=== PATIENT | male | born 1980 | race Caucasian/White ===

== ENCOUNTER 2019-02-12 07:08 | Emergency (ER) | payer OTHER, SELFPAY ==
[2019-02-12 07:13] VITALS: BP 160/106; PULSE 113; RESP 16; TEMP 36.6; O2SAT 95
--- NOTE | 2019-02-12 07:17 | ED.GENADUL_ITS ---
Discharge Plan Disposition Patient Disposition: HOME Condition: Good Discharge Details Chief Complaint: Orthopedic Clinical Impression: Acute pain of right knee Primary Care Provider: Tyler Pedraza ED Provider: Heidi Mckeon Home Meds and New Rx's Prescriptions: No Action omeprazole 20 MG capsule,delayed release(DR/EC) 20 mg PO DAILY Qty: 90 RF: 3 ibuprofen 800 MG tablet 800 mg PO BID PRNQty: 60 RF: 1 albuterol sulfate [Proventil HFA] 200 PUFF HFA aerosol inhaler 2 puff Inhalation Q4H PRN PRNQty: 1 RF: 0 (DME) inhalational spacing device [AeroChamber Plus Z Stat Sm Msk] 1 EACH spacer 1 ea Miscellaneous Q4H PRN Qty: 1 RF: 0 Discharge Instructions Instructions: Knee Pain (ED) Additional Instructions: At this time there is no evidence of significant fracture noted on the x-ray. Please use a tight Shmuel wrap for your knee to give it stability, or use knee brace if it is able to fit comfortably. Please use Tylenol and Motrin to help decrease any swelling, and use your crutches at all times until the pain resolves. Please follow-up closely with Dr. Jones. If you notice any worsening of your symptoms, or any new symptoms such as redness around her knee, worsening swelling, worsening pain,, numbness, weakness, or fainting , please return immediately to the emergency department for reevaluation. As always, it was a pleasure participating in your medical care today. Stand Alone Forms: Work Release Referrals: Vick Jones MD [ [facility] STAFF PHYSICIAN] - Discharge Data Discharge Physician: Heidi Mckeon Medical Decision Making <Janusz Clark DO - Last Filed: 02/12/19 07:30> This is a pleasant 38-year-old male past medical history of previous patellar dislocation who presents today for evaluation of right knee pain. Patient states that roughly an hour or so ago he felt like his knee was not able to fully extend, felt notably unstable in the extended position. He denies any significant pain except when in the completely extended position and at that time it is mild. He denies numbness tingling weakness fall or trauma recently. He does have a history of previous patella dislocation, and states that although he has no pain right now, it feels notably unstable like it is about to dislocate when he is extended. Exam is notably unremarkable. It is slightly ch allenging secondary to the body habitus of the patient's leg. No gross osseous deformities, no signs of significant joint instability. We will get an x-ray to rule out acute fracture or atypical calcified lesion, will give crutches, and reassess. He has seen Dr. Jones before I feel that orthopedic follow-up would be beneficial. Case will be signed out to my colleague Dr. Heidi Mckeon for final disposition after imaging. <Heidi Mckeon DO - Last Filed: 02/12/19 10:12> 0800 --please see Dr. Clark's note for initial presentation, exam and plan. 38-year-old male with a previous history of patellar dislocation presents with right knee pain with full extension since this morning. He denies any recent injury. He has no pain at rest or when sitting, only with full extension. Right knee appears minimally edematous anterior superior knee with no erythema or significant increase in temperature to touch compared to left knee. He has pain with varus stress but no other ligamentous instability, deformity or evidence of trauma. He is neurovascularly intact. Case endorsed to follow-up on x-ray. There was concern that patient possibly had a high riding patella so were waiting on virtual radiology report. 0934 --Long delay in vrad report due to high turn around times. X-ray read as negative. Patient advised on the importance of RICE, motrin, tylenol. An Shmuel wrap was placed here. He states he has a hinged knee brace and he brought crutches here. He was advised to follow-up with Dr. Jones for reevaluation as he has seen him in the past for his knee pain. Usual and customary return precautions given prior to discharge. Medical Records Medical records reviewed: Yes I reviewed the patient's medical records. HPI <Janusz Clark DO - Last Filed: 02/12/19 07:30> General Date/Time Provider Initiated Documentation: 02/12/19 07:09 . HPI Narrative: This is a 38-year-old male with a past medical history of morbid obesity, and previous history of right patella dislocation who presents today for right knee instability. Patient states that today roughly 1 hour prior to arrival he noticed that he was having difficulty fully extending his right knee. There is mild pain when he was in a position of full extension. He denies any recent trauma falls or atypical movement or ambulation. He states that he did dislocate his patella a few years ago, at that time there was extreme pain and discomfort. He does not feel like he has done anything like that however he does feel that his knee feels notably unstable when it is in the extended position. He denies any numbness tingling or weakness otherwise. He denies any other complaints at this time. He has no pain when not using the leg, and he has no pain with mild flexion or extension. Related Data Home Medications Medication Instructions Recorded Confirmed albuterol sulfate [Proventil HFA] 2 puff INHALATION Q4H PRN PRN #1 05/13/17 02/12/19 inh inhalational spacing device #1 spacer 05/13/17 05/26/17 [AeroChamber Plus Z Stat Sm Msk] ibuprofen 800 mg PO BID PRN #60 tab 05/14/17 02/12/19 omeprazole 20 mg PO DAILY #90 cap 05/14/17 02/12/19 Previous Rx's Medication Instructions Recorded albuterol sulfate [Proventil HFA] 2 puff INHALATION Q4H PRN PRN #1 05/13/17 inh inhalational spacing device #1 spacer 05/13/17 [AeroChamber Plus Z Stat Sm Msk] omeprazole 20 mg PO DAILY #90 cap 05/14/17 Allergies Allergy/AdvReac Type Severity Reaction Status Date / Time gramicidin D Allergy Mild RASH Unverified 02/12/19 07:23 neomycin Allergy Mild RASH Unverified 02/12/19 07:23 polymyxin B Allergy Mild RASH Unverified 02/12/19 07:23 latex Allergy Unknown MILD RASH Unverified 02/12/19 07:23 Review of Systems <Janusz Clark DO - Last Filed: 02/12/19 07:30> All systems reviewed & are unremarkable except as noted in HPI and below PFSH <Janusz Clark DO - Last Filed: 02/12/19 07:30> Medical History Fractured left collar bone Fractured left wrist Surgical History (Updated 08/16/17 @ 12:46 by Carla Figueredo RN) Colonoscopy - MAC (08/03/17) Multiple tooth extraction (18), 2012 Family History Mother Personal history of malignant neoplasm Uterine cancer, ~50yo Asthma COPD? +Nicotine Father Personal history of malignant neoplasm 50s, Colorectal cancer, chemo + surgery Mental disorder Addiction--[place] Paternal Grandmother , Brain Cancer Personal history of malignant neoplasm M Aunt Diabetes Personal history of malignant neoplasm Colon Maternal Grandmother Diabetes Personal history of malignant neoplasm Breast or lung cancer? Maternal Grandfather Diabetes Sister Mental disorder Bipolar--treated for 10, but misdiagnosed Personality disorder?--borderline? Other Heart disease Social History Smoking/Tobacco Use Status: Current every day Tobacco Type: e-cigarettes Substance use type: does not use Do you feel safe in your relationship?: Yes Exam <Janusz Clark DO - Last Filed: 02/12/19 07:30> Narrative Exam Narrative: 1.Const: Well-nourished, Well-developed, appearing stated age, morbidly obese 2.Eyes: PERRL, no conjunctival injection, and symmetrical lids. 3.ENT: Atraumatic external nose and ears. Moist MM. Neck: Symmetric, trachea midline, No thyromegaly. 4.CVS: +S1/S2, No murmurs or gallops. Peripheral pulses 2+ and equal in all extremities. Brisk capillary refill in all extremities. 5.RESP: Unlabored respiratory effort. Clear to auscultation bilaterally. No wheezes rales or rhonchi 6.GI: Soft, Nontender/Nondistended, No hepatosplenomegaly. No guarding or rebound. 7.MSK: Normocephalic/Atraumatic, Extremities w/o deformity or ttp No cyanosis or clubbing. Right knee: The knee is stable to varus, valgus, and anterior drawer stress. No deformity. Certain aspects of osseous palpation are challenging secondary to the patient's body habitus. Patellar grind test is negative. Ajith test is negative for significant pain. No evidence of significant edema. No ttp to the patella, tibial plateau, or fibular head. However when the patient's knee is fully extended he does have some mild subjective pain at the proximal lateral tibial plateau. Right knee certainly does not extend as for as the left knee. But it is nearly straight in extension. 8.Skin: Warm, Dry. No rashes or lesions. 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 Sensation grossly intact, no focal neurologic deficits. 10.Psych: (AAO) x3. Appropriate mood and affect Sign Out <Janusz Clark DO - Last Filed: 02/12/19 07:30> Sign Out Data: Sign Out Comment: Pending imaging results, suspect atypical patellar placement. Recommend orthopedic consult post image results. Last updated by Janusz Clark DO at 02/12/19 07:57
--- NOTE | 2019-02-12 07:33 | DI.RAD_ITS ---
EXAM: XR KNEE RT 3V AP,LAT,JUAUQIN CLINICAL HISTORY: right knee pain, hx of dislocation TECHNIQUE: COMPARISON: No exams were available for comparison FINDINGS: Three views were obtained. No fracture is seen. Mild degenerative changes noted most marked involv ing the lateral tibial femoral joint. IMPRESSION:
[2019-02-12] MEDS: Ibuprofen 600 MG TAB PO (08:30)
--- NOTE | 2019-02-12 09:59 | DI.VRAD_ITS ---
PROCEDURE INFORMATION: Exam: XR Right Knee Exam date and time: 02/12/2019 7:38 AM Age: 38 years old Clinical indication: Other: Right knee pain, HX of dislocation TECHNIQUE: Imaging protocol: XR Right knee. Views: 3 views. COMPARISON: CR RIGHT KNEE 3 VIEWS 05/26/2017 2:12 AM FINDINGS: Bones/joints: No acute fracture. Joint spaces are maintained. No significant joint effusion. Mild tricompartmental osteophytosis without joint space narrowing. Soft tissues: Prepatellar edema. IMPRESSION: No acute findings. Dictated and Authenticated by: Sumanth Ball MD. Ordering:ALTA Boudreaux MD
--- NOTE | 2019-02-12 10:49 | NUR.NOTE ---
Nursing Note: Work note not given to pt. Patient stated that it could be mailed to him. Jesica Jacobs.
== END 2019-02-12 10:11 | disposition home or self-care (01) ==
PROVIDERS: Emergency Provider Physician Assistant; PCP Specialist/Technologist Athletic Trainer
DX: M25.561 Pain in right knee (principal)
CPT/HCPCS: 73562; 99283